=== PATIENT | male | born 1955 | race Caucasian/White ===

== ENCOUNTER 2018-01-22 07:57 | Inpatient (IN) | payer OTHER ==
[2018-01-22 09:30] LABS: POTASSIUM 4.3 mmol/L (3.5-5.1)
[2018-01-22] MEDS: POLYMYXIN/BACITRACIN 1L IRRIG (10:09)
[2018-01-22] MEDS: BUPIVACAINE 0.25% (MPF) 30 ML INJ (10:09)
[2018-01-22] MEDS: THROMBIN 5000 UNIT VIAL (10:09)
[2018-01-22] MEDS: GELATIN SIZE 100 SPONGE (10:09)
[2018-01-22] MEDS ORDERED: ONDANSETRON 4 MG INJ (10:30)
[2018-01-22] MEDS ORDERED: DIPHENHYDRAMINE 50 MG INJ IV (10:30)
[2018-01-22] MEDS ORDERED: FENTAnyl 50 MCG/ML VIAL (10:30)
[2018-01-22] MEDS ORDERED: SUCCINYLCHOLINE CHLORIDE 100 MG/5 ML SYG IV (10:30)
[2018-01-22] MEDS ORDERED: MIDAZOLAM 1 MG/ML 2 ML INJ (10:30)
[2018-01-22] MEDS ORDERED: LABETALOL HCL 20MG INJ IV (10:30)
[2018-01-22] MEDS ORDERED: METOCLOPRAMIDE 10 MG INJ (10:30)
[2018-01-22] MEDS ORDERED: HYDROmorphONE 1 MG/5 ML IV SYRINGE IV ×3 (10:30)
[2018-01-22] MEDS ORDERED: PROPOFOL 20 ML ×2 (10:30→10:50)
[2018-01-22] MEDS ORDERED: hydrALAzine 20 MG INJ IV (10:30)
[2018-01-22] MEDS ORDERED: ONDANSETRON 4 MG INJ IV ×2 (10:30→16:30)
[2018-01-22] MEDS ORDERED: ROCURONIUM 50 MG INJ (10:30)
[2018-01-22] MEDS ORDERED: HYDROmorphONE 2 MG/ML SYG (10:50)
[2018-01-22] MEDS ORDERED: EPHEDrine SULFATE 50 MG/5 ML SYG (10:59)
[2018-01-22] MEDS ORDERED: MINERAL OIL LIGHT 10 ML VIAL (13:18)
[2018-01-22] MEDS: MEPERIDINE 25 MG INJ IV (16:20)
[2018-01-22] MEDS ORDERED: DIPHENHYDRAMINE 50 MG CAP PO (16:30)
[2018-01-22] MEDS ORDERED: ZOLPIDEM 5 MG TAB PO (16:30)
[2018-01-22] MEDS ORDERED: BETHANECHOL 25 MG TAB PO (16:30)
[2018-01-22] MEDS ORDERED: DIAZEPAM 5 MG TAB PO (16:30)
[2018-01-22] MEDS ORDERED: DIAZEPAM 5 MG/ML SYG IM (16:30)
[2018-01-22] MEDS ORDERED: PROCHLORPERAZINE 10 MG TAB PO (16:30)
[2018-01-22] MEDS ORDERED: NACL 0.9% 3 ML SYG IV (16:30)
[2018-01-22] MEDS ORDERED: AL HYDROX/MG HYDROX/SIMETH 30 ML CUP PO (16:30)
[2018-01-22] MEDS ORDERED: NALOXONE (0.4 MG/ML) INJ IV (16:30)
[2018-01-22] MEDS ORDERED: ACETAMINOPHEN 325 MG TAB PO (16:30)
[2018-01-22] MEDS ORDERED: TRIMETHOBENZAMIDE 100 MG/ML VIAL IM (16:30)
[2018-01-22] MEDS: HYDROmorphONE 0.2 MG/ML PCA IV (16:37)
[2018-01-22] MEDS: CEFAZOLIN 1 GM/50 ML (PMX) 50 ML IVPB ×2 (19:20→23:28)
[2018-01-22] MEDS: CEFAZOLIN 2 GM/50 ML (PMX) 50 ML IVPB (20:27)
[2018-01-22] MEDS: LACTATED RINGER'S 1,000 ML IV* ×2 (20:28)
[2018-01-22] MEDS: RANITIDINE 150 MG TAB PO (20:37)
[2018-01-22] MEDS: ATORVASTATIN 10 MG TAB PO (20:37)
[2018-01-22] MEDS: DEXTROSE 5%-0.45% NACL 1,000 ML IV (20:38)
[2018-01-22] MEDS: CEPASTAT LOZENGE MT ×2 (20:40→20:53)
[2018-01-23] MEDS: HYDROmorphONE 0.2 MG/ML PCA IV (05:01)
[2018-01-23] MEDS: DEXTROSE 5%-0.45% NACL 1,000 ML IV ×3 (05:09→22:03)
[2018-01-23 05:26] LABS: HEMATOCRIT 32.5 % (42.0-52.0); HEMOGLOBIN 10.9 g/dl (14.0-18.0)
[2018-01-23 05:44] LABS: SODIUM 138 mmol/L (135-144)
[2018-01-23 05:45] LABS: ANION GAP 8 (5-13); BLOOD UREA NITROGEN 16 mg/dl (7-20); CALCIUM 8.3 mg/dl (8.4-10.2); CARBON DIOXIDE 28 mmol/L (21-31); CHLORIDE 102 mmol/L (97-110); CREATININE 0.97 mg/dl (0.61-1.24); Estimated GFR > 60 mL/min (>60); GLUCOSE 207 mg/dl (70-220); POTASSIUM 4.6 mmol/L (3.5-5.1)
[2018-01-23] MEDS: CEFAZOLIN 1 GM/50 ML (PMX) 50 ML IVPB ×2 (05:49→12:44)
[2018-01-23] MEDS: LEVOTHYROXINE 100 MCG TAB PO (06:02)
[2018-01-23] MEDS ORDERED: BETHANECHOL 25 MG TAB PO (08:00)
[2018-01-23] MEDS: ASCORBIC ACID 500 MG TAB PO ×2 (09:04→20:48)
[2018-01-23] MEDS: RANITIDINE 150 MG TAB PO ×2 (09:04→20:48)
[2018-01-23] MEDS: FERROUS SULFATE (EC) 325 MG TAB PO ×3 (09:04→20:48)
[2018-01-23] MEDS: DOCUSATE SODIUM 100 MG CAP PO ×2 (09:04→20:48)
[2018-01-23] MEDS: BENAZEPRIL 10 MG TAB PO (09:05)
[2018-01-23] MEDS: CHOLECALCIFEROL 400 UNITS TAB PO (09:05)
[2018-01-23] MEDS: ATENOLOL 25 MG TAB PO (09:06)
[2018-01-23] MEDS: HYDROCODONE/APAP (5/325) TAB PO ×7 (09:07→23:17)
[2018-01-23] MEDS: LACTATED RINGER'S 1,000 ML IV* ×2 (09:30)
[2018-01-23 15:20] LABS: ADD UMIC YES; UR ASCORBIC ACID NEGATIVE (NEGATIVE); UR BILIRUBIN (Dip) NEGATIVE (NEGATIVE); UR BLOOD (Dip) 1+ mg/dL (NEGATIVE); UR CLARITY CLEAR (CLEAR); UR COLOR YELLOW (YELLOW); UR GLUCOSE (Dip) 1+ mg/dL (NEGATIVE); UR KETONES (Dip) NEGATIVE (NEGATIVE); UR LEUKOCYTE ESTERASE (Dip) NEGATIVE Leu/ul (NEGATIVE); UR MUCUS FEW /HPF (NONE SEEN); UR NITRITE (Dip) NEGATIVE (NEGATIVE); UR RBC 8 /HPF (0-5); UR SPECIFIC GRAVITY (Dip) 1.016 (1.003-1.030); UR TOTAL PROTEIN (Dip) NEGATIVE (NEGATIVE); UR UROBILINOGEN (Dip) NEGATIVE (NEGATIVE); UR WBC 1 /HPF (0-5)
[2018-01-23] MEDS: ATORVASTATIN 10 MG TAB PO (20:48)
[2018-01-24] MEDS: HYDROCODONE/APAP (5/325) TAB PO ×2 (03:26→07:01)
[2018-01-24] MEDS: LEVOTHYROXINE 100 MCG TAB PO (07:01)
[2018-01-24] MEDS: DOCUSATE SODIUM 100 MG CAP PO (09:10)
[2018-01-24] MEDS: RANITIDINE 150 MG TAB PO (09:10)
[2018-01-24] MEDS: ASCORBIC ACID 500 MG TAB PO (09:10)
[2018-01-24] MEDS: FERROUS SULFATE (EC) 325 MG TAB PO (09:10)
[2018-01-24] MEDS: CHOLECALCIFEROL 400 UNITS TAB PO (09:11)
[2018-01-24] MEDS: ATENOLOL 25 MG TAB PO (09:11)
[2018-01-24] MEDS: BENAZEPRIL 10 MG TAB PO (09:11)
[2018-01-24] MEDS ORDERED: INFLUENZA VIRUS VACCINE 0.5 ML (DISPENSING) IM* (10:00)
== END 2018-01-24 11:50 | disposition home or self-care (01) | DRG 519 ==
LOC: REC 07:57 → MS1 17:26
PROVIDERS: Orthopaedic Surgery
PROC: 01NB0ZZ Release Lumbar Nerve, Open Approach (ICD-10-PCS; principal; 2018-01-22 10:29)
PROC: 0SB20ZZ Excision of Lumbar Vertebral Disc, Open Approach (ICD-10-PCS; 2018-01-22 10:29)
PROC: 4A11X4G Monitoring of Peripheral Nervous Electrical Activity, Intraoperative, External Approach (ICD-10-PCS; 2018-01-22 10:29)
DX: M48.061 Spinal stenosis, lumbar region without neurogenic claudication (principal); Z68.41 Body mass index [BMI] 40.0-44.9, adult; M51.26 Other intervertebral disc displacement, lumbar region; E66.01 Morbid (severe) obesity due to excess calories; E78.00 Pure hypercholesterolemia, unspecified; E03.9 Hypothyroidism, unspecified; I10 Essential (primary) hypertension; E78.5 Hyperlipidemia, unspecified
CPT/HCPCS: 72020; 80048; 81001; 84132; 85014; 85018; 86850; 86900; 86901; 86920; 87086; 88304; 88311; 90686; 97116; 97161; 97530